=== PATIENT | female | born 1935 | race Caucasian/White ===

== ENCOUNTER 2018-06-17 08:07 | Emergency (ER) | payer MEDICARE ==
[2018-06-17] MEDS ORDERED: METFORMIN500 MG PO (08:27)
[2018-06-17] MEDS ORDERED: FUROSEMIDE40 MG PO (08:27)
[2018-06-17] MEDS ORDERED: ASPIRIN81 MG PO (08:27)
[2018-06-17] MEDS ORDERED: K-DUR/KLOR-CON20 MEQ PO (08:28)
[2018-06-17] MEDS ORDERED: FERR SULFATE325 MG PO (08:28)
[2018-06-17] MEDS ORDERED: CYMBALTA30 MG PO (08:29)
[2018-06-17] MEDS ORDERED: SIMVASTATIN20 MG PO (08:29)
[2018-06-17] MEDS ORDERED: TOPROL XL PO (08:30)
[2018-06-17] MEDS ORDERED: MELOXICAM7.5 MG PO (08:30)
[2018-06-17] MEDS ORDERED: LISINOPRIL20 MG PO (08:30)
[2018-06-17] MEDS ORDERED: LOFIBRA134 MG PO (08:31)
[2018-06-17] MEDS ORDERED: CELEXA40 M1 PO (08:32)
[2018-06-17] MEDS ORDERED: TERAZOSIN5 MG PO (08:32)
[2018-06-17] MEDS ORDERED: VERAPAMIL120 M1 PO (08:34)
[2018-06-17] MEDS ORDERED: OMEPRAZOLE10 MG PO (08:34)
[2018-06-17] MEDS ORDERED: LEVOXYL PO (08:34)
[2018-06-17 08:47] LABS: HEMATOCRIT 34.2 % (37.0-47.0); HEMOGLOBIN 11.2 g/dl (12.0-16.0); MEAN CORPUSCULAR HGB CONC 32.7 g/L CALC (32.0-36.0); NEUT# 3.91 thou/uL (2.00-7.15); RED BLOOD COUNT 3.2 mill/uL (4.20-5.60); RED CELL DISTRI WIDTH 13.2 % (11.5-15.5)
[2018-06-17 08:48] LABS: MEAN CELL VOLUME 106.9 fL CALC (80.0-100.0)
[2018-06-17 09:20] LABS: CREATININE 1.2 mg/dL (0.5-1.0); POTASSIUM 4.6 mmol/l (3.5-5.1)
[2018-06-17 09:40] VITALS: BP 175/86
== END 2018-06-17 10:07 | disposition home or self-care (01) ==
LOC: ED 08:07
PROVIDERS: Family Medicine
DX: S00.03XA Contusion of scalp, initial encounter (principal); W01.0XXA Fall on same level from slipping, tripping and stumbling without subsequent striking against object, initial encounter; Y93.01 Activity, walking, marching and hiking; Y92.480 Sidewalk as the place of occurrence of the external cause; R51 Headache; M54.2 Cervicalgia